=== PATIENT | female | born 1985 | race Two or more races ===

== ENCOUNTER 2022-05-26 23:37 | Emergency (ER) | payer MEDICAID ==
[~2022-05-26] VITALS: Ht 149.9 cm; Wt 58.5 kg
[2022-05-26 23:37] VITALS: BP 113/69
[2022-05-27] MEDS ORDERED: AMOX-277 PO (02:25)
== END 2022-05-27 02:33 | disposition home or self-care (01) ==
LOC: ER 23:37
DX: J32.9 Chronic sinusitis, unspecified (principal)